=== PATIENT | female | born 1985 | race Caucasian/White ===

== ENCOUNTER 2018-12-07 18:34 | Emergency (ER) | payer OTHER, MEDICAID, SELFPAY ==
[2018-12-07 18:37] VITALS: BP 104/65; PULSE 94; RESP 20; TEMP 36.6; O2SAT 95
--- NOTE | 2018-12-07 19:14 | ED.SKABFB ---
HPI - Skin/Abscess/Foreign Bdy <Earline Jurado PA-C - Last Filed: 12/07/18 20:45> General Chief complaint: Skin/Abscess/Foreign Body Stated complaint: LEFT FOOT CRACKED AND BLEEDING Time Seen by Provider: 12/07/18 18:50 Source: patient Mode of arrival: ambulatory Limitations: no limitations History of Present Illness HPI narrative: This 33-year-old female comes to ED secondary to left foot cracking and splitting, and was bleeding earlier between her great and 2nd toe. She states this has been itchy. She states that she noticed the irritation a few days ago and cracking in the last couple of days after wearing dirty socks. She denies any pain. She has not noted redness elsewhere in the foot, no drainage or fever. Denies other complaints today. Wondering if we have medication here for this as her payday is not until Friday. Related Data Allergies Allergy/AdvReac Type Severity Reaction Status Date / Time No Known Drug Allergies Allergy Verified 12/07/18 18:40 Review of Systems <Earline Jurado PA-C - Last Filed: 12/07/18 20:45> Review of Systems ROS Unobtainable: All systems reviewed & are unremarkable except as noted in HPI and below PFSH <Earline Jurado PA-C - Last Filed: 12/07/18 20:45> Medical History (Updated 12/07/18 @ 19:59 by Earline Jurado PA-C) Molar (Acute) Unspecified mood [affective] disorder (Acute) Anxiety disorder (Acute) Insomnia (Acute) Surgical History (Updated 12/07/18 @ 19:59 by Earline Jurado PA-C) S/P dilatation and curettage (Resolved) Family History (Updated 12/07/18 @ 19:59 by Earline Jurado PA-C) Other Anxiety disorder Insomnia Molar Unspecified mood [affective] disorder Social History (Updated 12/07/18 @ 19:59 by Earline Jurado PA-C) Smoking Status: Never smoker Family History (Updated 12/07/18 @ 19:59 by Earline Jurado PA-C) Other Anxiety disorder Insomnia Molar Unspecified mood [affective] disorder Social History (Updated 12/07/18 @ 19:59 by Earline Jurado PA-C) Smoking Status: Never smoker Exam <Earline Jurado PA-C - Last Filed: 12/07/18 20:45> Narrative Exam Narrative: GENERAL APPEARANCE: Patient sitting comfortably, in no distress. LUNGS: Clear to auscultation bilaterally. HEART: Rate and rhythm regular without murmur, normal S1 and S2, no S3 or S4. DERMATOLOGIC: Left foot there is mild interdigital flaking and cracking more pronounced in the 1/2 interdigital space where there is single deeper crack. There is also some flaking just inferior to the toes. None on the right foot. No erythema, open areas or drainage. ?Touch EXTREMITIES: No cyanosis or edema Initial Vital Signs Initial Vital Signs: Vital Signs Temperature 97.9 F 12/07/18 18:37 Pulse Rate 94 H 12/07/18 18:37 Respiratory Rate 20 12/07/18 18:37 Blood Pressure 104/65 12/07/18 18:37 Pulse Oximetry 95 12/07/18 18:37 <Melquiades Alejandra DO - Last Filed: 12/07/18 21:21> Initial Vital Signs Initial Vital Signs: Vital Signs Temperature 97.9 F 12/07/18 18:37 Pulse Rate 94 H 12/07/18 18:37 Respiratory Rate 20 12/07/18 18:37 Blood Pressure 104/65 12/07/18 18:37 Pulse Oximetry 95 12/07/18 18:37 Course <Earline Jurado PA-C - Last Filed: 12/07/18 20:45> Vital Signs - 8 hr 12/07/18 18:37 Temperature 97.9 F Pulse Rate 94 H Respiratory Rate 20 Blood Pressure 104/65 Pulse Oximetry 95 <Melquiades Alejandra DO - Last Filed: 12/07/18 21:21> Vital Signs - 8 hr 12/07/18 18:37 Temperature 97.9 F Pulse Rate 94 H Respiratory Rate 20 Blood Pressure 104/65 Pulse Oximetry 95 Discharge Plan Departure Patient Disposition: Home Clinical Impression: Tinea pedis Qualifiers: Laterality: left Qualified Code(s): B35.3 - Tinea pedis Discharge Date/Time: 12/07/18 19:57 Interventions: ED Discharge Assessment Last Done: 12/07/18 19:56 Instructions: DI for Athlete's Foot Activity Restrictions/Additional Instructions: Your foot cracking appears to be a fungal infection (athlete's foot) which commonly causes cracking and flaking and itching. You should monitor this as this can be associated with secondary bacterial infections due to the skin cracks though you do not appear to have 1 now. Please keep the skin clean and dry, open to air when possible (i.e. wear sandals when out and be barefoot at home). You can use antifungal powder, and also start an [id number] athlete's foot cream (I recommend Lamisil) regularly. If you start to have increased skin redness, swelling, pain, draining pus, or other new symptoms such as fever you should be seen by your PCP or return right away Referrals: Wilma San ARNP [Non-Staff] - <Melquiades Alejandra DO - Last Filed: 12/07/18 21:21> Cosign ED Attending Jackature Attestation: I was immediately available in the department for consultation. Documentation has been reviewed. I agree with assessment and plan.
== END 2018-12-07 19:57 | disposition home or self-care (01) ==
PROVIDERS: Emergency Provider Internal Medicine; Family Provider Registered Nurse; PCP Registered Nurse
DX: B35.3 Tinea pedis (principal)
CPT/HCPCS: 99282

== ENCOUNTER 2018-12-28 14:16 | Emergency (ER) | payer OTHER, MEDICAID, SELFPAY ==
[2018-12-28 14:30] VITALS: BP 115/64; PULSE 93; RESP 18; TEMP 36.9; O2SAT 100; BMI 24.8
--- NOTE | 2018-12-28 14:53 | ED.SKABFB ---
HPI - Skin/Abscess/Foreign Bdy <Earline Jurado PA-C - Last Filed: 12/28/18 20:46> General Chief complaint: Skin/Abscess/Foreign Body Stated complaint: welt on bum Time Seen by Provider: 12/28/18 14:18 Source: patient Mode of arrival: ambulatory Limitations: no limitations History of Present Illness HPI narrative: This 33-year-old female comes to ED secondary to concern for skin infection or abscess. She states that area near the crease she noticed an irritated area in the last 2 or 3 days, she thinks from a ephraim on her jeans. She states that she thought was a pimple and tried to pop it, but but now thinks the irritation is worse. She did not note any drainage. She states that she tried some [id number] healing ointment, no other medicines. She denies fever or any other new complaints on systems review and has been going about her usual activities. She has not seen her PCP for this. Related Data Home Medications Medication Instructions Recorded Confirmed amitriptyline 50 mg PO BEDTIME 12/28/18 12/28/18 aripiprazole 10 mg PO DAILY 12/28/18 12/28/18 hydroxyzine HCl 25 mg PO QID PRN 12/28/18 12/28/18 lamotrigine 100 mg PO BID 12/28/18 olanzapine 10 mg PO BID 12/28/18 12/28/18 Previous Rx's Medication Instructions Recorded cefadroxil 500 mg PO Q6HR #28 cap 12/28/18 Allergies Allergy/AdvReac Type Severity Reaction Status Date / Time No Known Drug Allergies Allergy Verified 12/28/18 14:30 Review of Systems <Earline Jurado PA-C - Last Filed: 12/28/18 20:46> Review of Systems ROS Unobtainable: All systems reviewed & are unremarkable except as noted in HPI and below PFSH <Earline Jurado PA-C - Last Filed: 12/28/18 20:46> Medical History (Updated 12/28/18 @ 15:04 by Earline Jurado PA-C) Molar (Acute) Unspecified mood [affective] disorder (Acute) Anxiety disorder (Acute) Insomnia (Acute) Surgical History (Updated 12/07/18 @ 19:59 by Earline Jurado PA-C) S/P dilatation and curettage (Resolved) Family History (Updated 12/07/18 @ 19:59 by Earline Jurado PA-C) Other Anxiety disorder Insomnia Molar Unspecified mood [affective] disorder Social History (Updated 12/07/18 @ 19:59 by Earline Jurado PA-C) Smoking Status: Never smoker Family History (Updated 12/07/18 @ 19:59 by Earline Jurado PA-C) Other Anxiety disorder Insomnia Molar Unspecified mood [affective] disorder Social History (Updated 12/07/18 @ 19:59 by Earline Jurado PA-C) Smoking Status: Never smoker Exam <Earline Jurado PA-C - Last Filed: 12/28/18 20:46> Narrative Exam Narrative: GENERAL APPEARANCE: Patient sitting comfortably, in no distress. LUNGS: Clear to auscultation bilaterally. HEART: Rate and rhythm regular without murmur, normal S1 and S2, no S3 or S4. DERMATOLOGIC: Right proximal buttock at the border of the gluteal cleft there is a patch of slightly irregular erythema up 0.5 cm in diameter, minimally warm to touch, with 2 barely visible papules and one additional that looks like a dry pore, all contained within. This is slightly indurated, minimally tender, no fluctuance. No exanthem or lesions elsewhere Initial Vital Signs Initial Vital Signs: Vital Signs Temperature 98.5 F 12/28/18 14:30 Pulse Rate 93 H 12/28/18 14:30 Respiratory Rate 18 12/28/18 14:30 Blood Pressure 115/64 12/28/18 14:30 Pulse Oximetry 100 12/28/18 14:30 <Lilly Baez DO - Last Filed: 12/30/18 19:32> Initial Vital Signs Initial Vital Signs: Vital Signs Temperature 98.5 F 12/28/18 14:30 Pulse Rate 93 H 12/28/18 14:30 Respiratory Rate 18 12/28/18 14:30 Blood Pressure 115/64 12/28/18 14:30 Pulse Oximetry 100 12/28/18 14:30 Course <Earline Jurado PA-C - Last Filed: 12/28/18 20:46> Vital Signs - 8 hr 12/28/18 14:30 12/28/18 15:13 Temperature 98.5 F Pulse Rate 93 H 80 Respiratory Rate 18 18 Blood Pressure 115/64 107/64 Pulse Oximetry 100 98 <Lilly Baez DO - Last Filed: 12/30/18 19:32> Vital Signs - 8 hr 12/28/18 14:30 12/28/18 15:13 Temperature 98.5 F Pulse Rate 93 H 80 Respiratory Rate 18 18 Blood Pressure 115/64 107/64 Pulse Oximetry 100 98 Discharge Plan Departure Patient Disposition: Home Clinical Impression: Cellulitis Qualifiers: Site of cellulitis: buttock Qualified Code(s): L03.317 - Cellulitis of buttock Discharge Date/Time: 12/28/18 15:14 Interventions: ED Discharge Assessment Last Done: 12/28/18 15:13 Instructions: DI for Cellulitis -- Adult Activity Restrictions/Additional Instructions: As we talked about, you should return to Emergency or urgent care if you have sudden increase in swelling or pain or new symptoms such as fever. Otherwise, please product picker the antibiotic right away and started. See your PCP at the end of this week for recheck. Put a bandage or dressing on the area to avoid irritation, and use a warm pack when you are home, several times daily Prescriptions: New cefadroxil 500 mg capsule 500 mg PO Q6HR Qty: 28 RF: 0 No Action amitriptyline 50 mg tablet 50 mg PO BEDTIME RF: 0 hydroxyzine HCl 25 mg tablet 25 mg PO QID PRN (Reason: as directed) RF: 0 lamotrigine 100 mg tablet 100 mg PO BID RF: 0 aripiprazole 10 mg tablet 10 mg PO DAILY RF: 0 olanzapine 10 mg tablet,disintegrating 10 mg PO BID RF: 0 Referrals: Agapito Damon ARNP [Primary Care Provider] - <Lilly Baez DO - Last Filed: 12/30/18 19:32> Cosign ED Attending Cosignature Attestation: I was immediately available in the department for consultation. This documentation has been reviewed and I agree with assessment and plan. Supervised by Lilly Baez DO
[2018-12-28 15:13] VITALS: BP 107/64; PULSE 80; RESP 18; O2SAT 98
--- NOTE | 2018-12-28 15:13 | PC.NURSE ---
Provider evaluated without RN present.
== END 2018-12-28 15:14 | disposition home or self-care (01) ==
PROVIDERS: Emergency Provider Internal Medicine; Family Provider Registered Nurse; PCP Registered Nurse
DX: L03.317 Cellulitis of buttock (principal)
CPT/HCPCS: 99282; 99283

== ENCOUNTER 2019-01-02 20:32 | Emergency (ER) | payer OTHER, MEDICAID, SELFPAY ==
[2019-01-02 20:35] VITALS: BP 120/61; PULSE 95; RESP 15; TEMP 36.5; O2SAT 100
--- NOTE | 2019-01-02 20:39 | ED.GENADULT ---
HPI - General Adult General Chief complaint: Arrhythmia/Palpitations Stated complaint: says she is tachy, wants heart looked at Time Seen by Provider: 01/02/19 20:37 Source: patient Mode of arrival: ambulatory Limitations: no limitations History of Present Illness HPI narrative: Patient is a 33-year-old female seen here in the emergency department a couple days ago and diagnosed with a skin infection. She states that she has started her medications. She stated over the past couple days she has felt like her heart rate has been fast and also slow. No other associated symptoms. Stated that she wanted her heart ?checked out? patient also with multiple other complaints unrelated to her tachycardia. Related Data Home Medications Medication Instructions Recorded Confirmed amitriptyline 50 mg PO BEDTIME 12/28/18 12/28/18 aripiprazole 10 mg PO DAILY 12/28/18 12/28/18 hydroxyzine HCl 25 mg PO QID PRN 12/28/18 12/28/18 lamotrigine 100 mg PO BID 12/28/18 olanzapine 10 mg PO BID 12/28/18 12/28/18 Previous Rx's Medication Instructions Recorded cefadroxil 500 mg PO Q6HR #28 cap 12/28/18 Allergies Allergy/AdvReac Type Severity Reaction Status Date / Time No Known Drug Allergies Allergy Verified 12/28/18 14:30 Review of Systems Constitutional Denies headache(s) ENT Ears, Nose, Mouth, and Throat: Denies headache(s) and Denies disequilibrium Cardiovascular Denies chest pain, Denies diaphoresis, Denies lightheadedness and Denies dyspnea Comments: Fast heart rate and slow heart rate Respiratory Denies dyspnea Gastrointestinal Gastrointestinal: Denies abdominal pain Musculoskeletal Denies myalgias and Denies arthralgias Integumentary/Breasts Denies rash Neurologic Denies headache(s), Denies paresthesias and Denies disequilibrium Hematologic/Lymphatic Denies easy bleeding and Denies easy bruising [facility] Medical History Molar (Acute) Unspecified mood [affective] disorder (Acute) Anxiety disorder (Acute) Insomnia (Acute) Surgical History (Updated 12/07/18 @ 19:59 by Earline Jurado PA-C) S/P dilatation and curettage (Resolved) Family History (Updated 12/07/18 @ 19:59 by Earline Jurado PA-C) Other Anxiety disorder Insomnia Molar Unspecified mood [affective] disorder Social History Smoking Status: Never smoker Family History (Updated 12/07/18 @ 19:59 by Earline Jurado PA-C) Other Anxiety disorder Insomnia Molar Unspecified mood [affective] disorder Social History Smoking Status: Never smoker Exam Initial Vital Signs Initial Vital Signs: Vital Signs Temperature 97.7 F 01/02/19 20:35 Pulse Rate 95 H 01/02/19 20:35 Respiratory Rate 15 01/02/19 20:35 Blood Pressure 120/61 01/02/19 20:35 Pulse Oximetry 100 01/02/19 20:35 HENMT Head: normal to inspection and normocephalic Resp Effort & Inspection: normal respiratory effort Auscultation: clear to auscultation bilaterally Cardio Rate: regular rate Rhythm: regular rhythm Neuro General: alert, awake and oriented x3 Speech: speech normal Extrem General: normal to inspection and capillary refill normal Course Orders Ordered: ED Orders 01/02/19 20:46 EKG-12 Lead Stat Vital Signs - 8 hr 01/02/19 20:35 Temperature 97.7 F Pulse Rate 95 H Respiratory Rate 15 Blood Pressure 120/61 Pulse Oximetry 100 Medical Decision Making ECG Data Attestation: I personally reviewed and interpreted this ECG as follows: Prior ECG tracings: not available for review Interpretation: Sinus rhythm Ventricular rate 82 Sinus arrhythmia Normal QRS Normal QTC No ST T wave changes MDM Narrative Medical decision making narrative: Patient without any ectopy here in the emergency department. Her EKG is unremarkable. She is taking the antibiotics for the skin infection that she was seen for a couple days ago. Her other complaints stem around her psychiatric medications. Unsure as to exactly what she was asking for with regard to these medications. I informed her that she needed to talk with her primary doctor and/or her mental health provider regarding any of these medications. She expressed understanding. Also informed her that she should talk with her primary doctor about obtaining a Holter monitor for further evaluation of her palpitations. She was given return precautions and follow-up instructions. She expressed understanding and agreement with plan. Discharge Plan Departure Patient Disposition: Home Clinical Impression: Heart palpitations Discharge Date/Time: 01/02/19 21:11 Interventions: ED Discharge Assessment Last Done: 01/02/19 21:08 Instructions: DI for Palpitations Activity Restrictions/Additional Instructions: I recommend you contact your primary care provider to discuss the indications for a Holter monitor. Continue all of your medications as directed. Return to the emergency department for any new symptoms. Prescriptions: No Action amitriptyline 50 mg tablet 50 mg PO BEDTIME RF: 0 hydroxyzine HCl 25 mg tablet 25 mg PO QID PRN (Reason: as directed) RF: 0 lamotrigine 100 mg tablet 100 mg PO BID RF: 0 aripiprazole 10 mg tablet 10 mg PO DAILY RF: 0 olanzapine 10 mg tablet,disintegrating 10 mg PO BID RF: 0 cefadroxil 500 mg capsule 500 mg PO Q6HR Qty: 28 RF: 0 Referrals: Agapito Damon ARNP [Primary Care Provider] -
--- NOTE | 2019-01-02 20:55 | PC.NURSE ---
stand by for ekg with aSm DA SILVA.
== END 2019-01-02 21:11 | disposition home or self-care (01) ==
PROVIDERS: Emergency Provider Emergency Medicine; PCP Registered Nurse
DX: R00.2 Palpitations (principal)
CPT/HCPCS: 93005; 99282; 99283